=== PATIENT | female | born 1940 ===

== ENCOUNTER 2017-09-28 04:24 | Inpatient (IN) | payer OTHER ==
[~2017-09-28] VITALS: Ht 160 cm; Wt 81.6 kg
[~2017-09-28 04:24] MED LIST: CHLORTHALIDONE25 MG PO; COZAAR100 MG PO; GLIMEPIRIDE2 MG PO; ZOCOR5 MG PO
[2017-10-04] MEDS ORDERED: FLAGYL500MG PO (12:49)
[2017-10-04] MEDS ORDERED: CIPRO500 MG PO (12:49)
[2017-10-04] MEDS ORDERED: PEPCID20 MG PO (12:49)
== END 2017-10-04 14:19 | disposition home or self-care (01) | DRG 393 ==
LOC: ER 04:24 → SEC-K 13:36 → MEDJ 15:11
PROC: BW25Y0Z Computerized Tomography (CT Scan) of Chest, Abdomen and Pelvis using Other Contrast, Unenhanced and Enhanced (ICD-10-PCS; 2017-09-28)
PROC: 0DBG8ZX Excision of Left Large Intestine, Via Natural or Artificial Opening Endoscopic, Diagnostic (ICD-10-PCS; principal; 2017-10-02)
PROC: 0DBL8ZX Excision of Transverse Colon, Via Natural or Artificial Opening Endoscopic, Diagnostic (ICD-10-PCS; 2017-10-02)
PROC: 0DBN8ZX Excision of Sigmoid Colon, Via Natural or Artificial Opening Endoscopic, Diagnostic (ICD-10-PCS; 2017-10-02)
DX: K52.0 Gastroenteritis and colitis due to radiation (principal); A41.9 Sepsis, unspecified organism; Y84.2 Radiological procedure and radiotherapy as the cause of abnormal reaction of the patient, or of later complication, without mention of misadventure at the time of the procedure; Y92.098 Other place in other non-institutional residence as the place of occurrence of the external cause; C54.1 Malignant neoplasm of endometrium; E87.6 Hypokalemia; D12.4 Benign neoplasm of descending colon; D12.3 Benign neoplasm of transverse colon

== ENCOUNTER 2018-01-26 13:43 | Inpatient (IN) | payer OTHER ==
[~2018-01-26] VITALS: Ht 157.5 cm; Wt 68.0 kg
[~2018-01-26 13:43] MED LIST changes: +CIPRO500 MG PO; +FLAGYL500MG PO; +PEPCID20 MG PO
== END 2018-02-27 20:55 | disposition expired | DRG 981 ==
LOC: ER 13:43 → SEC-K 23:18 → SURH 23:18 → O/R 02-11 15:10 → ICU 02-12 19:05
PROVIDERS: Surgery
PROC: BW3GY0Z Magnetic Resonance Imaging (MRI) of Pelvic Region using Other Contrast, Unenhanced and Enhanced (ICD-10-PCS; 2018-01-27)
PROC: BW21Y0Z Computerized Tomography (CT Scan) of Abdomen and Pelvis using Other Contrast, Unenhanced and Enhanced (ICD-10-PCS; 2018-02-03)
PROC: 02HV33Z Insertion of Infusion Device into Superior Vena Cava, Percutaneous Approach (ICD-10-PCS; 2018-02-05)
PROC: 4A12X4Z Monitoring of Cardiac Electrical Activity, External Approach (ICD-10-PCS; 2018-02-07)
PROC: 0D1B0Z4 Bypass Ileum to Cutaneous, Open Approach (ICD-10-PCS; 2018-02-09)
PROC: 0D1L0Z4 Bypass Transverse Colon to Cutaneous, Open Approach (ICD-10-PCS; 2018-02-09)
PROC: 0D7 Gastrointestinal System, Dilation (ICD-10-PCS; 2018-02-09)
PROC: 0DQ80ZZ Repair Small Intestine, Open Approach (ICD-10-PCS; 2018-02-09)
PROC: 0J9C0ZZ Drainage of Pelvic Region Subcutaneous Tissue and Fascia, Open Approach (ICD-10-PCS; 2018-02-09)
PROC: 3E0F7GC Introduction of Other Therapeutic Substance into Respiratory Tract, Via Natural or Artificial Opening (ICD-10-PCS; 2018-02-09)
PROC: 0DTF0ZZ Resection of Right Large Intestine, Open Approach (ICD-10-PCS; principal; 2018-02-09 12:00)
PROC: 0BH17EZ Insertion of Endotracheal Airway into Trachea, Via Natural or Artificial Opening (ICD-10-PCS; 2018-02-11)
PROC: 5A1945Z Respiratory Ventilation, 24-96 Consecutive Hours (ICD-10-PCS; 2018-02-11)
PROC: 30233N1 Transfusion of Nonautologous Red Blood Cells into Peripheral Vein, Percutaneous Approach (ICD-10-PCS; 2018-02-22)
DX: N32.1 Vesicointestinal fistula (principal); A41.89 Other specified sepsis; J80 Acute respiratory distress syndrome; G93.41 Metabolic encephalopathy; K65.8 Other peritonitis; R65.21 Severe sepsis with septic shock; N18.6 End stage renal disease; B37.7 Candidal sepsis; A41.81 Sepsis due to Enterococcus; K52.0 Gastroenteritis and colitis due to radiation; N39.0 Urinary tract infection, site not specified; J98.11 Atelectasis; C7A.025 Malignant carcinoid tumor of the sigmoid colon; B37.89 Other sites of candidiasis; B49 Unspecified mycosis; N17.8 Other acute kidney failure; R18.8 Other ascites; K62.5 Hemorrhage of anus and rectum; K94.03 Colostomy malfunction; K91.71 Accidental puncture and laceration of a digestive system organ or structure during a digestive system procedure; I12.0 Hypertensive chronic kidney disease with stage 5 chronic kidney disease or end stage renal disease; E87.6 Hypokalemia; C54.1 Malignant neoplasm of endometrium; E78.49 Other hyperlipidemia; Z79.4 Long term (current) use of insulin; B96.89 Other specified bacterial agents as the cause of diseases classified elsewhere; D69.59 Other secondary thrombocytopenia; J98.2 Interstitial emphysema; D63.1 Anemia in chronic kidney disease; E11.22 Type 2 diabetes mellitus with diabetic chronic kidney disease
CPT/HCPCS: 72196